=== PATIENT | female | born 1990 | race Caucasian/White ===

== ENCOUNTER → 2018-08-07 | Outpatient (CLI) | payer OTHER ==
[2018-08-07 11:08] LABS: Basophils % (A) 0 %; Eosinophils # (A) 0.1 k/uL (0-0.7); Eosinophils % (A) 1 %; HCT 48.7 % (34.0-46.0); HGB 15.5 gm/dL (11.4-16.0); Lymphocytes # (A) 2.9 k/uL (1.0-4.8); Lymphocytes % (A) 34 %; MCH 30.3 pg (25.0-35.0); MCHC 31.9 g/dL (31.0-37.0); MCV 94.9 fL (80.0-100.0); Mean Platelet Volume 7.9; Monocytes # (A) 0.4 k/uL (0-1.0); Monocytes % (A) 5 %; Neutrophils # (A) 5.1 k/uL (1.3-7.7); Neutrophils % (A) 58 %; Platelet Count 269 k/uL (150-450); RBC 5.14 m/uL (3.80-5.40); RDW 12.8 % (11.5-15.5); WBC 8.7 k/uL (3.8-10.6)
[2018-08-07 11:51] LABS: ALT 19 U/L (9-52); AST 24 U/L (14-36); Albumin 4.7 g/dL (3.5-5.0); Alkaline Phosphatase 71 U/L (38-126); Anion Gap 8 mmol/L; Blood Urea Nitrogen 11 mg/dL (7-17); C Reactive Protein <5.0 mg/L (<10.0); Calcium 10.2 mg/dL (8.4-10.2); Carbon Dioxide 27 mmol/L (22-30); Chloride 105 mmol/L (98-107); Creatine Kinase 40 U/L (30-135); Glucose 83 mg/dL (74-99); Potassium 4.8 mmol/L (3.5-5.1); Sodium 140 mmol/L (137-145); Total Bilirubin 0.6 mg/dL (0.2-1.3)
[2018-08-07 12:06] LABS: T4, Free (Free Thyroxine) 0.97 ng/dL (0.78-2.19)
[2018-08-07 13:20] LABS: Erythrocyte Sedimentation Rate 2 mm/hr (0-20)
[2018-08-07 20:18] LABS: Rheumatoid Factor 5 IU/mL (0-15)
== END ==
LOC: LABWHC1 10:04
PROVIDERS: ATTEND Physician Assistant
DX: E03.9 Hypothyroidism, unspecified (principal); D64.9 Anemia, unspecified; M13.0 Polyarthritis, unspecified; R20.0 Anesthesia of skin
CPT/HCPCS: 36415; 80053; 82306; 82550; 82607; 84439; 84443; 84481; 85025; 85652; 86038; 86140; 86431

== ENCOUNTER → 2018-12-03 | Outpatient (CLI) | payer MEDICARE, OTHER ==
--- NOTE | 2018-12-03 14:01 | US ---
EXAMINATION TYPE: US pelvic complete DATE OF EXAM: 12/03/2018 COMPARISON: NONE CLINICAL HISTORY: R10.2 PELVIC PAIN. TECHNIQUE: Transabdominal (TA). Date of LMP: 11/12/2018 EXAM MEASUREMENTS: Uterus: 8.3 x 3.3 x 5.4 cm Endometrial Stripe: 1.0 cm Right Ovary: 3.2 x 2.4 x 2.0 cm Left Ovary: 3.0 x 2.9 x 2.2 cm 1. Uterus: Anteverted wnl 2. Endometrium: wnl 3. Right Ovary: wnl 4. Left Ovary: wnl 5. Bilateral Adnexa: wnl 6. Posterior cul-de-sac: no free fluid Heterogeneous anteverted uterus is seen. Endometrium is within normal limits for secretory phase of m enstrual cycle. No free fluid is seen in pelvic cul-de-sac. Both ovaries are seen. Small peripheral follicles are present seen best in the left ovary. No suspici ous adnexal lesions are present. IMPRESSION: Unremarkable transabdominal pelvic ultrasound.
== END | disposition home or self-care (01) ==
LOC: RADUSWWP 13:25
PROVIDERS: ATTEND Obstetrics & Gynecology
DX: R10.2 Pelvic and perineal pain (principal)
CPT/HCPCS: 76856

== ENCOUNTER → 2019-01-20 | Outpatient (CLI) | payer MEDICARE, OTHER ==
[2019-01-20 14:23] LABS: Basophils % (A) 0 %; Eosinophils # (A) 0.1 k/uL (0-0.7); Eosinophils % (A) 1 %; HCT 43.2 % (34.0-46.0); HGB 13.9 gm/dL (11.4-16.0); Lymphocytes # (A) 2.5 k/uL (1.0-4.8); Lymphocytes % (A) 28 %; MCH 30.2 pg (25.0-35.0); MCHC 32.2 g/dL (31.0-37.0); MCV 93.8 fL (80.0-100.0); Monocytes # (A) 0.4 k/uL (0-1.0); Monocytes % (A) 5 %; Neutrophils # (A) 5.6 k/uL (1.3-7.7); Neutrophils % (A) 65 %; Platelet Count 262 k/uL (150-450); RDW 13.9 % (11.5-15.5); WBC 8.7 k/uL (3.8-10.6)
== END | disposition home or self-care (01) ==
LOC: LABPAT 13:19
PROVIDERS: ATTEND Obstetrics & Gynecology
DX: Z01.812 Encounter for preprocedural laboratory examination (principal)
CPT/HCPCS: 85025

== ENCOUNTER → 2019-02-19 | Outpatient (CLI) | payer MEDICARE, OTHER ==
[2019-02-19 13:19] LABS: Basophils % (A) 0 %; Eosinophils # (A) 0.1 k/uL (0-0.7); Eosinophils % (A) 1 %; HCT 42.5 % (34.0-46.0); HGB 13.6 gm/dL (11.4-16.0); Lymphocytes # (A) 2.1 k/uL (1.0-4.8); Lymphocytes % (A) 27 %; MCH 30.3 pg (25.0-35.0); MCV 94.7 fL (80.0-100.0); Mean Platelet Volume 8.4; Monocytes # (A) 0.3 k/uL (0-1.0); Monocytes % (A) 4 %; Neutrophils # (A) 5.3 k/uL (1.3-7.7); Neutrophils % (A) 67 %; Platelet Count 254 k/uL (150-450); RBC 4.49 m/uL (3.80-5.40); RDW 14.3 % (11.5-15.5)
== END ==
LOC: LABWHC1 10:40
PROVIDERS: ATTEND Obstetrics & Gynecology
DX: Z01.812 Encounter for preprocedural laboratory examination (principal)
CPT/HCPCS: 36415; 85025

== ENCOUNTER → 2019-03-06 | Day surgery (SDC) | payer MEDICARE, OTHER ==
[2019-03-03 15:35] VITALS: BMI 21.4
--- NOTE | 2019-03-05 17:02 | P.HPOB ---
History of Present Illness H&P Date: 03/05/19 Chief Complaint: Cervical dysplasia Carmelina is a 28 she'll female with MICHAEL-3 verified on pathology from a colposcopy. She is scheduled for LEEP colposcopy to remove same. Risks/benefits/alternatives to this procedure were discussed with the patient in detail and all questions were answered for her prior to proceeding to the operating room. Past Medical History Past Medical History: Cancer, Chest Pain / Angina, COPD Additional Past Medical History / Comment(s): freq nausea,cervical cancer,VERTIGO History of Any Multi-Drug Resistant Organisms: None Reported Past Surgical History: Tubal Ligation Past Anesthesia/Blood Transfusion Reactions: Motion Sickness Additional Past Anesthesia/Blood Transfusion Reaction / Comment(s): no hx blood transfusion Smoking Status: Current every day smoker - Past Family History Mother Family Medical History: Deep Vein Thrombosis (DVT) Medications and Allergies Home Medications Medication Instructions Recorded Confirmed Type Glycopyrrolate/Formoterol Fum 2 puff INHALATION BID 01/21/19 01/31/19 History [Bevespi Aerosphere Inhaler] PARoxetine HCL [Paxil] 40 mg PO QAM 01/21/19 03/03/19 History Pregabalin [Lyrica] 150 mg PO BID 01/21/19 03/03/19 History Allergies Allergy/AdvReac Type Severity Reaction Status Date / Time latex Allergy Rash/Hives Verified 03/03/19 15:25 Exam Osteopathic Statement: *. No significant issues noted on an osteopathic structural exam other than those noted in the History and Physical/Consult. - OBG Physical Exam Breast: both: normal (no masses) Abdomen: bowel sounds normal, no diffuse tenderness, no bruit present, no guarding noted, no hepatomegaly, no splenomegaly, no mass Vulva: both: normal Vagina: normal moisture, no discharge Cervix: no lesion, no discharge Uterus: normal size, normal contour Adnexa: both: normal Anus/Rectum: normal perianal skin, no rectal mass, no hemorrhoids, heme negative
[~2019-03-06] MED LIST: DEXAMETHASONE SOD PHOSPHATE 10 MG/ML 1 ML VIAL IV ONE; HYDROcodone/APAP 5-325MG 1 EACH TAB PO ONE; HYDROmorphone 0.5 MG/0.5 ML SYRINGE IVP PRN; KETAMINE 10 MG/ML 20 ML VIAL ONE; KETOROLAC 30 MG/ML 1 ML VIAL ONE; LACTATED RINGERS 1,000 ML IV ONE; LACTATED RINGERS 1,000 ML IV SCH; LIDOCAINE 1% 20 ML VIAL (10MG/ML) FOR IV START INTRADERMA PRN; LIDOCAINE 1% INJ 10MG/ML (20 ML MDV) ONE; MIDAZOLAM (PF) 2 MG/2 ML VIAL IV PRN; MIDAZOLAM 2 MG/2 ML VIAL ONE; ONDANSETRON 4 MG/2 ML VIAL IVP ONE; PROPOFOL 10 MG/ML 20 ML VIAL IV ONE; Pre Op ABX Message 1 EACH MISC MISCELLANE ONE; SCOPOLAMINE 1.5MG/72HR PATCH TRANSDERM ONE; fentaNYL (PF) 50 MCG/ML 2 ML AMP ONE
--- NOTE | 2019-03-06 10:07 | P.OP ---
Date of Procedure: 03/06/19 Preoperative Diagnosis: Cervical dysplasia Postoperative Diagnosis: Same Procedure(s) Performed: LEEP colposcopy Anesthesia: SELMA Surgeon: Melecio Renteria Estimated Blood Loss (ml): 10 Pathology: other (Cervical cone) Condition: stable Disposition: same day Operative Findings: Colposcopy done with tissue pathology pending Description of Procedure: Patient was taken to the operating suite where a general anesthetic was found be adequate. She was prepped and draped in normal sterile fashion and placed in dorsal lithotomy position. Initially a coated speculum was inserted into the vagina and the ectocervix was covered with Lugol solution culdoscope was then brought in areas of dysplasia were noted and using a 2 cm loop one pass was made moving from 9:00 to 3:00 to remove the cervical cone. Instrument was then exchanged for a ball-tipped cautery and cauterization of the bed of the cervix was done with attention applied also to the lateral areas of the incision to verify instruction of any potential remaining dysplastic tissue. Specimen was t hen marked at 12:00 instruments removed sponge, lap, needle counts were all correct 2. Patient was then taken to the recovery room in stable and satisfactory condition. Plan - Discharge Summary Discharge Rx Participant: Yes New Discharge Prescriptions: New Ibuprofen [Motrin] 600 mg PO Q6HR PRN #30 tab PRN Reason: Pain HYDROcodone/APAP 5-325MG [Freeman 5-325] 1 tab PO Q4HR PRN #20 tab PRN Reason: Pain No Action Pregabalin [Lyrica] 150 mg PO BID PARoxetine HCL [Paxil] 40 mg PO QAM Glycopyrrolate/Formoterol Fum [Bevespi Aerosphere Inhaler] 2 puff INHALATION BID Discharge Medication List Glycopyrrolate/Formoterol Fum [Bevespi Aerosphere Inhaler] 2 puff INHALATION BID 01/21/19 [History] PARoxetine HCL [Paxil] 40 mg PO QAM 01/21/19 [History] Pregabalin [Lyrica] 150 mg PO BID 01/21/19 [History] HYDROcodone/APAP 5-325MG [[place] 5-325] 1 tab PO Q4HR PRN #20 tab 03/06/19 [Rx] Ibuprofen [Motrin] 600 mg PO Q6HR PRN #30 tab 03/06/19 [Rx] Follow up Appointment(s)/Referral(s): Melecio Renteria DO [Doctor of Osteopathic Medicine] - 2 Weeks Patient Instructions/Handouts: *Surgery [facility] - Scopalamine Patch Instructions Activity/Diet/Wound Care/Special Instructions: No heavy lifting, limit stairs and driving and complete pelvic rest. If any high temperature's, heavy bleeding, or severe pain call the office or report to the emergency room Discharge Disposition: HOME SELF-CARE
[2019-03-06 10:08] VITALS: TEMP 97.9
[2019-03-06 10:18] VITALS: RESP 18
[2019-03-06 11:15] VITALS: BP 120/80; PULSE 66
== END | disposition home or self-care (01) ==
LOC: OR 08:52
PROVIDERS: ATTEND Obstetrics & Gynecology
DX: N87.9 Dysplasia of cervix uteri, unspecified (principal); J44.9 Chronic obstructive pulmonary disease, unspecified; F17.200 Nicotine dependence, unspecified, uncomplicated; Z79.899 Other long term (current) drug therapy; Z91.040 Latex allergy status; F39 Unspecified mood [affective] disorder
CPT/HCPCS: 81025; 88307; 57460; J2250; J1100; J2405; J2001; J3010; J1885; J2704

== ENCOUNTER 2023-09-04 00:41 | Emergency (ER) | payer MEDICARE, OTHER ==
--- NOTE | 2023-09-04 01:17 | ED ---
General Adult HPI - General Source: police Mode of arrival: wheelchair <Syed Guillen - Last Filed: 09/04/23 01:16> <Elian Page - Last Filed: 09/04/23 11:05> - General Source: RN notes reviewed, old records reviewed Limitations: no limitations - History of Present Illness -: unknown Associated Symptoms: denies other symptoms Treatments Prior to Arrival: none <Brad Yan - Last Filed: 09/05/23 18:14> - General Chief complaint: Psychiatric Symptoms Stated complaint: Mental Health Time Seen by Provider: 09/04/23 00:49 - History of Present Illness Initial comments: Dictation was produced using [employer] dictation software. please excuse any grammatical, word or spelling errors. Chief Complaint: 33-year-old female presents to the ER for EPS evaluation History of Present Illness: 33-year-old female she apparently was disturbing the peace. Enforcement was called tried to bring her home however she refused. They tried to bring her to family/friends house and stated that they did not want her here. She began showing signs of acute psychosis described as tangential speech. She also made a suicidal comment. She's been petitioned by peace officers for EPS evaluation The ROS documented in this emergency department record has been reviewed and confirmed by me. Those systems with pertinent positive or negative responses have been documented in the HPI. All other systems are other negative and/or noncontributory. (Syed Guillen) This is a 33-year-old female presents today for psychiatric evaluation, psychosis, patient does not participate in history of present illness (Brad Yan) - Related Data Home Medications Medication Instructions Recorded Confirmed Unable To Assess [Unable to Assess] 09/04/23 09/04/23 Allergies Allergy/AdvReac Type Severity Reaction Status Date / Time latex Allergy Rash/Hives Verified 09/04/23 00:53 Review of Systems ROS Other: All systems not noted in ROS Statement are negative. <Syed Guillen - Last Filed: 09/04/23 01:16> ROS Other: All systems not noted in ROS Statement are negative. <Elian Page - Last Filed: 09/04/23 11:05> ROS Other: All systems not noted in ROS Statement are negative. <Brad Yan - Last Filed: 09/05/23 18:14> ROS Statement: Those systems with pertinent positive or pertinent negative responses have been documented in the HPI. Past Medical History Past Medical History: Cancer Additional Past Medical History / Comment(s): cervical cancer. VERTIGO History of Any Multi-Drug Resistant Organisms: None Reported Past Surgical History: Tubal Ligation Past Anesthesia/Blood Transfusion Reactions: Motion Sickness Past Psychological History: Depression Smoking Status: Current every day smoker Past Alcohol Use History: Occasional Past Drug Use History: Marijuana <Gilberto Guillenssdashawn Johnson - Last Filed: 09/04/23 01:16> General Exam <Syed Guillen - Last Filed: 09/04/23 01:16> General appearance: alert, in no apparent distress Head exam: Present: atraumatic, normocephalic, normal inspection Eye exam: Present: normal appearance, PERRL, EOMI. Absent: scleral icterus, conjunctival injection, periorbital swelling ENT exam: Present: normal exam, mucous membranes moist Neck exam: Present: normal inspection. Absent: tenderness, meningismus, lymphadenopathy Respiratory exam: Present: normal lung sounds bilaterally. Absent: respiratory distress, wheezes, rales, rhonchi, stridor Cardiovascular Exam: Present: regular rate, normal rhythm, normal heart sounds. Absent: systolic murmur, diastolic murmur, rubs, gallop, clicks GI/Abdominal exam: Present: soft, normal bowel sounds. Absent: distended, tenderness, guarding, rebound, rigid Extremities exam: Present: normal inspection, full ROM, normal capillary refill. Absent: tenderness, pedal edema, joint swelling, calf tenderness Back exam: Present: normal inspection Neurological exam: Present: alert, oriented X3, CN II-XII intact Psychiatric exam: Present: normal affect, normal mood Skin exam: Present: warm, dry, intact, normal color. Absent: rash <Brad Yan - Last Filed: 09/05/23 18:14> - General Exam Comments Initial Comments: PHYSICAL EXAM: General Impression: Alert and oriented x3, not in acute distress HEENT: Normocephalic atraumatic, extra-ocular movements intact, pupils equal and reactive to light bilaterally, mucous membranes moist. Cardiovascular: Heart regular rate and rhythm Chest: Able to complete full sentences, no retractions, no tachypnea Abdomen: abdomen soft, non-tender, non-distended, no organomegaly Musculoskeletal: Pulses present and equal in all extremities, no peripheral edema Motor: no focal deficits noted Neurological: CN II-XII grossly intact, no focal motor or sensory deficits noted Skin: Intact with no visualized rashes Psych: Uncooperative, tangential speech (Syed Guillen) Course <Brad Yan - Last Filed: 09/05/23 18:14> Vital Signs 09/04/23 09/04/23 09/04/23 00:43 14:30 21:00 Temperature 98.5 F 97.8 F Pulse Rate 100 89 100 Respiratory 18 20 18 Rate Blood Pressure 135/83 135/85 111/73 O2 Sat by Pulse 100 100 99 Oximetry - Reevaluation(s) Reevaluation #1: 09/05/23 17:12 Medical records reviewed (Brad Yan) Reevaluation #2: 09/05/23 17:12 Medical clear for psychiatric evaluation (Brad Yan) Medical Decision Making <Elian Page - Last Filed: 09/04/23 11:05> - Lab Data Result diagrams: 09/05/23 08:19 09/05/23 08:19 <Brad Yan - Last Filed: 09/05/23 18:14> - Medical Decision Making Patient medically cleared by prior physician. Patient is pending psychiatric evaluation. She became agitated and was not responding to verbal cues. Patient was administered IM Ativan and Geodon for agitation. She responded well to this therapy. Nursing staff Attempted to contact EPS prior to this to see if they wanted to come evaluate the patient before medications but did not receive respo nse. (Elian Page) 33 female to the emergency department for evaluation of psychiatric illness. Patient be transferred for inpatient psychiatric evaluation and treatment (Brad Yan) - Lab Data Lab Results 09/04/23 09/04/23 09/05/23 Range/Units 07:52 17:56 08:19 WBC 7.5 (3.8-10.6) k/uL RBC 4.02 (3.80-5.40) m/uL Hgb 12.3 (11.4-16.0) gm/dL Hct 37.9 (34.0-46.0) % MCV 94.3 (80.0-100.0) fL MCH 30.6 (25.0-35.0) pg MCHC 32.5 (31.0-37.0) g/dL RDW 13.4 (11.5-15.5) % Plt Count 316 (150-450) k/uL MPV 7.9 Neutrophils % 59 % Lymphocytes % 33 % Monocytes % 4 % Eosinophils % 2 % Basophils % 0 % Neutrophils # 4.4 (1.3-7.7) k/uL Lymphocytes # 2.5 (1.0-4.8) k/uL Monocytes # 0.3 (0-1.0) k/uL Eosinophils # 0.1 (0-0.7) k/uL Basophils # 0.0 (0-0.2) k/uL Sodium (137-145) mmol/L Potassium (3.5-5.1) mmol/L Chloride (98-107) mmol/L Carbon Dioxide (22-30) mmol/L Anion Gap mmol/L BUN (7-17) mg/dL Creatinine (0.52-1.04) mg/dL Est GFR (CKD-EPI)AfAm (>60 ml/min/1.73 sqM) Est GFR (CKD-EPI)NonAf (>60 ml/min/1.73 sqM) Glucose (74-99) mg/dL POC Glucose (mg/dL) 102 (70-110) mg/dL POC Glu Psych Coordinator ID Neida Tuttle Calcium (8.4-10.2) mg/dL Total Bilirubin (0.2-1.3) mg/dL AST (14-36) U/L ALT (4-34) U/L Alkaline Phosphatase (38-126) U/L Total Protein (6.3-8.2) g/dL Albumin (3.5-5.0) g/dL Urine Color Urine Appearance (Clear) Urine pH (5.0-8.0) Ur Specific [place] (1.001-1.035) Urine Protein (Negative) Urine Glucose (UA) (Negative) Urine Ketones (Negative) Urine Blood (Negative) Urine Nitrite (Negative) Urine Bilirubin (Negative) Urine Urobilinogen (<2.0) mg/dL Ur Leukocyte Esterase (Negative) Urine RBC (0-5) /hpf Urine WBC (0-5) /hpf Ur Squamous Epith Cells (0-4) /hpf Urine Mucus (None) /hpf Urine HCG, Qual (Not Detectd) Urine Opiates Screen Negative (Negative) Urine Methadone Screen Negative (Negative) Ur Propoxyphene Screen Negative (Negative) Urine Barbiturates Negative (Negative) Ur Phencyclidine Scrn Negative (Negative) Ur Amphetamine Screen Positive A (Negative) U Benzodiazepines Scrn Negative (Negative) Urine Cocaine Screen Negative (Negative) U Cannabinoids Screen Negative (Negative) Urine Alcohol Negative (Negative) Coronavirus (PCR) (Not Detectd) 09/05/23 09/05/23 09/05/23 Range/Units 08:19 08:19 13:48 WBC (3.8-10.6) k/uL RBC (3.80-5.40) m/uL Hgb (11.4-16.0) gm/dL Hct (34.0-46.0) % MCV (80.0-100.0) fL MCH (25.0-35.0) pg MCHC (31.0-37.0) g/dL RDW (11.5-15.5) % Plt Count (150-450) k/uL MPV Neutrophils % % Lymphocytes % % Monocytes % % Eosinophils % % Basophils % % Neutrophils # (1.3-7.7) k/uL Lymphocytes # (1.0-4.8) k/uL Monocytes # (0-1.0) k/uL Eosinophils # (0-0.7) k/uL Basophils # (0-0.2) k/uL Sodium 136 L (137-145) mmol/L Potassium 4.1 (3.5-5.1) mmol/L Chloride 106 (98-107) mmol/L Carbon Dioxide 21 L (22-30) mmol/L Anion Gap 9 mmol/L BUN 21 H (7-17) mg/dL Creatinine 0.49 L (0.52-1.04) mg/dL Est GFR (CKD-EPI)AfAm >90 (>60 ml/min/1.73 sqM) Est GFR (CKD-EPI)NonAf >90 (>60 ml/min/1.73 sqM) Glucose 130 H (74-99) mg/dL POC Glucose (mg/dL) (70-110) mg/dL POC Glu Psych Coordinator ID Calcium 8.3 L (8.4-10.2) mg/dL Total Bilirubin 0.3 (0.2-1.3) mg/dL AST 21 (14-36) U/L ALT 17 (4-34) U/L Alkaline Phosphatase 69 (38-126) U/L Total Protein 5.7 L (6.3-8.2) g/dL Albumin 3.1 L (3.5-5.0) g/dL Urine Color Yellow Urine Appearance Cloudy H (Clear) Urine pH 7.0 (5.0-8.0) Ur Specific [place] 1.020 (1.001-1.035) Urine Protein Negative (Negative) Urine Glucose (UA) Negative (Negative) Urine Ketones Negative (Negative) Urine Blood Negative (Negative) Urine Nitrite Negative (Negative) Urine Bilirubin Negative (Negative) Urine Urobilinogen 2.0 (<2.0) mg/dL Ur Leukocyte Esterase Moderate (Negative) Urine RBC 2 (0-5) /hpf Urine WBC 19 H (0-5) /hpf Ur Squamous Epith Cells 22 H (0-4) /hpf Urine Mucus Rare H (None) /hpf Urine HCG, Qual (Not Detectd) Urine Opiates Screen (Negative) Urine Methadone Screen (Negative) Ur Propoxyphene Screen (Negative) Urine Barbiturates (Negative) Ur Phencyclidine Scrn (Negative) Ur Amphetamine Screen (Negative) U Benzodiazepines Scrn (Negative) Urine Cocaine Screen (Negative) U Cannabinoids Screen (Negative) Urine Alcohol (Negative) Coronavirus (PCR) Not Detected (Not Detectd) 09/05/23 Range/Units 13:48 WBC (3.8-10.6) k/uL RBC (3.80-5.40) m/uL Hgb (11.4-16.0) gm/dL Hct (34.0-46.0) % MCV (80.0-100.0) fL MCH (25.0-35.0) pg MCHC (31.0-37.0) g/dL RDW (11.5-15.5) % Plt Count (150-450) k/uL MPV Neutrophils % % Lymphocytes % % Monocytes % % Eosinophils % % Basophils % % Neutrophils # (1.3-7.7) k/uL Lymphocytes # (1.0-4.8) k/uL Monocytes # (0-1.0) k/uL Eosinophils # (0-0.7) k/uL Basophils # (0-0.2) k/uL Sodium (137-145) mmol/L Potassium (3.5-5.1) mmol/L Chloride (98-107) mmol/L Carbon Dioxide (22-30) mmol/L Anion Gap mmol/L BUN (7-17) mg/dL Creatinine (0.52-1.04) mg/dL Est GFR (CKD-EPI)AfAm (>60 ml/min/1.73 sqM) Est GFR (CKD-EPI)NonAf (>60 ml/min/1.73 sqM) Glucose (74-99) mg/dL POC Glucose (mg/dL) (70-110) mg/dL POC Glu Psych Coordinator ID Calcium (8.4-10.2) mg/dL Total Bilirubin (0.2-1.3) mg/dL AST (14-36) U/L ALT (4-34) U/L Alkaline Phosphatase (38-126) U/L Total Protein (6.3-8.2) g/dL Albumin (3.5-5.0) g/dL Urine Color Urine Appearance (Clear) Urine pH (5.0-8.0) Ur Specific [place] (1.001-1.035) Urine Protein (Negative) Urine Glucose (UA) (Negative) Urine Ketones (Negative) Urine Blood (Negative) Urine Nitrite (Negative) Urine Bilirubin (Negative) Urine Urobilinogen (<2.0) mg/dL Ur Leukocyte Esterase (Negative) Urine RBC (0-5) /hpf Urine WBC (0-5) /hpf Ur Squamous Epith Cells (0-4) /hpf Urine Mucus (None) /hpf Urine HCG, Qual Not Detected (Not Detectd) Urine Opiates Screen (Negative) Urine Methadone Screen (Negative) Ur Propoxyphene Screen (Negative) Urine Barbiturates (Negative) Ur Phencyclidine Scrn (Negative) Ur Amphetamine Screen (Negative) U Benzodiazepines Scrn (Negative) Urine Cocaine Screen (Negative) U Cannabinoids Screen (Negative) Urine Alcohol (Negative) Coronavirus (PCR) (Not Detectd) Disposition <Bayudan,Syed D - Last Filed: 09/04/23 01:16> <Elian Page - Last Filed: 09/04/23 11:05> Is patient prescribed a controlled substance at d/c from ED?: No <Brad Yan - Last Filed: 09/05/23 18:14> Clinical Impression: Acute psychosis, Psychosis Disposition: TRANSFER TO PSYCH HOSP/UNIT Condition: Fair Referrals: None,Stated [Primary Care Provider] - 1-2 days
[2023-09-04] MEDS ORDERED: LORazepam 2 MG/ML INJ IM STA ×2 (09:50→09:58)
[2023-09-04] MEDS ORDERED: ZIPRASIDONE 20 MG VIAL IM STA ×2 (09:50→20:45)
[2023-09-04 11:27] LABS: Urine Alcohol Negative (Negative); Urine Barbiturate Negative (Negative); Urine Cocaine Negative (Negative); Urine Methadone Negative (Negative); Urine Opiates Negative (Negative); Urine Phencyclidine Negative (Negative)
[2023-09-04 17:58] LABS: Glucose,Whole Blood 102 mg/dL (70-110)
[2023-09-04] MEDS ORDERED: LORazepam 1 MG TAB PO STA (20:06)
[2023-09-05 08:31] LABS: Basophils % (A) 0 %; Eosinophils # (A) 0.1 k/uL (0-0.7); Eosinophils % (A) 2 %; HCT 37.9 % (34.0-46.0); HGB 12.3 gm/dL (11.4-16.0); Lymphocytes # (A) 2.5 k/uL (1.0-4.8); Lymphocytes % (A) 33 %; MCH 30.6 pg (25.0-35.0); MCHC 32.5 g/dL (31.0-37.0); MCV 94.3 fL (80.0-100.0); Mean Platelet Volume 7.9; Monocytes # (A) 0.3 k/uL (0-1.0); Monocytes % (A) 4 %; Neutrophils # (A) 4.4 k/uL (1.3-7.7); Neutrophils % (A) 59 %; Platelet Count 316 k/uL (150-450); RBC 4.02 m/uL (3.80-5.40); RDW 13.4 % (11.5-15.5); WBC 7.5 k/uL (3.8-10.6)
[2023-09-05 08:44] LABS: ALT 17 U/L (4-34); AST 21 U/L (14-36); African American GFR (CKD) >90 (>60 ml/min/1.73 sqM); Albumin 3.1 g/dL (3.5-5.0); Alkaline Phosphatase 69 U/L (38-126); Anion Gap 9 mmol/L; Blood Urea Nitrogen 21 mg/dL (7-17); Calcium 8.3 mg/dL (8.4-10.2); Carbon Dioxide 21 mmol/L (22-30); Chloride 106 mmol/L (98-107); Glucose 130 mg/dL (74-99); Non-African American GFR(CKD) >90 (>60 ml/min/1.73 sqM); Potassium 4.1 mmol/L (3.5-5.1); Sodium 136 mmol/L (137-145); Total Bilirubin 0.3 mg/dL (0.2-1.3); Total Protein 5.7 g/dL (6.3-8.2)
[2023-09-05] MEDS ORDERED: ZIPRASIDONE 20 MG VIAL IM PRN (12:52)
[2023-09-05] MEDS ORDERED: LORazepam 2 MG/ML INJ IM STA (13:02)
[2023-09-05 14:37] LABS: Appearance,Urine Cloudy (Clear); Color,Urine Yellow; Mucus,Urine Rare /hpf; Protein,Urine Negative (Negative); RBC,Urine 2 /hpf (0-5); Squamous Epithelial Cell,Urine 22 /hpf (0-4); WBC,Urine 19 /hpf (0-5)
[2023-09-05 14:38] LABS: Bilirubin,Urine Negative (Negative); Blood,Urine Negative (Negative); Glucose,Urine (UA) Negative (Negative); Ketones,Urine Negative (Negative); Leukocyte Esterase,Urine Moderate (Negative); Nitrite,Urine Negative (Negative)
[2023-09-05 20:24] VITALS: BP 117/77; PULSE 97; RESP 16; TEMP 98.4
== END 2023-09-05 20:43 ==
LOC: EC 00:41
DX: F23 Brief psychotic disorder (principal); F17.200 Nicotine dependence, unspecified, uncomplicated; F12.90 Cannabis use, unspecified, uncomplicated; Z91.040 Latex allergy status; Z20.822 Contact with and (suspected) exposure to COVID-19
CPT/HCPCS: 82075; 36415 ×2; 80053; 85025; 81001; 81025; 80306; 87635; 99285; 96372 ×5; J2060 ×2; J3486 ×2